=== PATIENT | male | born 1960 | race Caucasian/White ===

== ENCOUNTER 2017-01-25 13:16 | Inpatient (IN) ==
[2017-01-25] MEDS ORDERED: SOLU-MEDROL IV ONE (13:40)
[2017-01-25] MEDS ORDERED: PULMICORT INH ONE (13:40)
[2017-01-25] MEDS ORDERED: ALBUTEROL NEB INH ONE (13:40)
[2017-01-25] MEDS ORDERED: DUONEB (A & A) INH ONE ×2 (13:40→14:58)
--- NOTE | 2017-01-25 14:15 | Diag Imaging Result Doc PS360 ---
EXAM: CHEST-1 VIEW HISTORY: SOB COMMENT: The inspiration is not as optimal as on 01/10/2017. The patient is rotated slightly to the right. There is increased opacity in the left base which may be due to atelectasis. There is also some suggestion of atelectasis or pneumonia in the right upper lobe. IMPRESSION: Poor inspiration. Questionable atelectasis as described. Electronically signed by J Carlos Dawn 01/25/2017 2:13 PM
[2017-01-25 14:33] LABS: ALBUMIN 2.9 g/dL (3.5-5.0); CALCIUM 7.2 mg/dL (8.8-10.2); POTASSIUM 3.3 mmol/L (3.5-5.1); TOTAL BILIRUBIN 0.4 mg/dL (0.20-1.00); TOTAL PROTEIN 5.6 g/dL (6.3-8.3)
[2017-01-25 14:34] LABS: BASO% 1.8 % (0.0-0.8); EOS# 0.04 X1000 (0.0-0.7); EOS% 1.4 % (0.0-10.0); HEMATOCRIT 34.7 % (42.0-52.0); HEMOGLOBIN 10.7 g/dL (14.0-18.0); IMM GRAN# 0.02 X1000 (0.0-0.04); IMM GRAN% 0.7 % (0.0-0.5); LYMPH# 0.65 X1000 (1.2-3.4); LYMPH% 23.3 % (20.5-51.1); MANUAL DIFF NEEDED? NO; MCHC 30.8 g/dL (33-37); MCV 107.1 FL (81-99); MONO% 14.3 % (1.7-9.3); MPV 11.6 FL (7.4-10.4); NEUT% 58.5 % (42.2-75.2); PLT 75 X1000 (130-400); RBC 3.24 XMIL (4.7-6.1)
[2017-01-25 14:41] LABS: ALLEN TEST YES; BE 2.6 mmoll (-3.0-3.0); BLOOD TYPE ARTERIAL; DRAW SITE L RADIAL; LACTATE < 0.30 mmoll (0.44-2.22); METHB 0.7 % (0.0-1.5); O2(CT) 13.3 mL/dL (15.0-23.0); PO2(98.6) 79 mmHg (60-100); SAMPLE BLOOD; SAO2 96.1 % (95.0-100.0); THB 10.4 g/dL (11.5-17.4)
[2017-01-25 14:44] LABS: MODALITY CANNULA
[2017-01-25 14:45] LABS: pH(98.6) 7.07 (7.35-7.45)
[2017-01-25 14:46] LABS: PCO2(98.6) 122 mmHg (35-45)
[2017-01-25] MEDS ORDERED: TYLENOL PO PRN (14:58)
[2017-01-25] MEDS ORDERED: NS 1,000 ML IV ONE (14:58)
[2017-01-25] MEDS ORDERED: ZOFRAN IV PRN (14:58)
--- NOTE | 2017-01-25 14:58 | PROVIDER DOCUMENTATION ---
This chart was entered by Maria Antonia Orantes Scribe, acting as scribe for Efrain Ashraf MD. HPI-Respiratory General - General Chief Complaint: Shortness of Breath Stated Complaint: TROUBLE BREATHING Time Seen by Provider: 01/25/17 13:30 Source: patient, family Allergies/Adverse Reactions: Patient Allergies Allergy/AdvReac Type Severity Reaction Status Date / Time No Known Allergies Allergy Verified 01/25/17 14:51 Home Medications: Home Medication List Medication Instructions Recorded Confirmed Last Taken Type Ipratropium/Albuterol Sulfate 2 puff IH BID 05/18/12 01/09/17 09/07/16 History [Combivent Inhaler] Oxycodone HCl/Acetaminophen 10 mg PO TID 09/10/14 01/09/17 09/07/16 History [Percocet 10-325 mg Tablet] Buspirone HCl 5 mg PO HS 06/19/15 01/09/17 09/07/16 History Clonazepam [Klonopin] 2 mg PO HS 06/19/15 01/09/17 09/07/16 History Lisinopril 20 mg PO DAILY 06/19/15 01/09/17 09/07/16 History Albuterol Sulfate [Proair Hfa] 8.5 gm IH BID 04/28/16 01/09/17 09/07/16 History Calcium Carbonate [Tums Extra 750 mg PO DAILY 04/28/16 01/09/17 09/07/16 History Strength] Ipratropium [place] [Atrovent] 2 puff NS BID 04/28/16 01/09/17 09/07/16 History Metoclopramide [Reglan] 10 mg PO DAILY 04/28/16 01/09/17 09/07/16 History Oxycodone HCl [Oxycontin] 30 mg PO BID 04/28/16 01/09/17 09/07/16 History Insulin Glargine [Lantus] 20 unit SUBQ DAILY #0 06/11/16 01/09/17 09/07/16 Rx Nicotine Patch [Nicoderm Patch] 21 mg TD DAILY #7 patch.[email or web address] 09/08/16 01/09/17 Unknown Rx - History of Present Illness-Resp Nature of Presenting Problem: Pt is 56 y/o M presents to the ED with SOB. Pt's family member states Pt has been SOB for one week. Pt's family member states he is on dialysis MWF. Pt's family member states he went to dialysis today and then she took Pt by PCP's office and Dr. Paul stated go to the ED. Pt denies F. Pt denies N/V/D. Pt denies any cough and cold. Quality of Pain: reports: tightness Severity in ED: reports: moderate Onset/Duration: reports: last week Timing: reports: still present, intermittent Exposure: reports: unknown cause Cough Quality/Degree: reports: no cough Episode Frequency: occasional episodes Current Respiratory Medication Therapy: Initiated see nurses note Modifying Factors: improves with: nothing Associated Symptoms: reports: shortness of breath, wheezing. denies: chest pain /soreness, cough, dizziness, earache, facial pain, fever/chills, flu-like symptoms, headache, heart racing, hurts to breathe, hyperventilating, lightheadedness, muscle/bodyaches, nasal congestion, nasal drainage, sinus pain , short of breath, sore throat, sweaty Similar Symptoms Previously?: Yes Recently seen or treated by another doctor?: Yes (Dr. Paul ) Review of Systems - Adult - REVIEW OF SYSTEMS - ADULT Constitutional: reports: no symptoms reported Eyes: reports: no symptoms reported Ears, Nose, Mouth & Throat: reports: no symptoms reported Cardiovascular: reports: no symptoms reported Respiratory: reports: shortness of breath, wheezing. denies: cough Gastrointestinal: reports: no symptoms reported Genitourinary: reports: no symptoms reported Musculoskeletal: reports: muscle weakness. denies: bone pain, joint pain, neck pain Integumentary: reports: no symptoms reported Neurological: reports: no symptoms reported Psychiatric: reports: no symptoms reported Endocrine: reports: no symptoms reported Hematologic/Lymphatic: reports: no symptoms reported Allergic/Immunologic: reports: no symptoms reported All Other Systems: Reviewed and Negative Past History - Adult - PAST MEDICAL HISTORY-ADULT Review of Records: reports: Nursing Assessment Review, Medications Reviewed, Social history reviewed & non-contributory. Major Childhood Illnesses: reports: denies history Cardiovascular: reports: HTN Respiratory: reports: COPD Gastrointestinal: reports: pancreatitis Obstetrical/Gynecological: reports: denies history Genitourinary: reports: dialysis (MWF), ESRD, kidney disease Musculoskeletal: reports: denies history Neurological: reports: denies history Endocrine/Immune: reports: Diabetes Other Conditions: reports: denies history - PRIOR SURGERIES/PROCEDURES Surgical/Procedure History: reports: cholecystectomy, indwelling device (port cath, av fisutla), tonsillectomy, bowel surgery (colon resection), other ( pancreatic ) - IMMUNIZATION STATUS Childhood Immunizations: See Nurse Assessment Flu Vaccine: See Nurse Assessment - FAMILY HISTORY Family History: reviewed, not pertinent - SOCIAL HISTORY Smoking: cigarettes, greater than 1 pack/day Provider spent 3-5 mins advising pt. on dangers of tobacco.: Discussed manners to quit use, and f/u contacts for add'l counseling. Substance Use: denies Living Situation: family Physical Exam-General - PHYSICAL EXAM-ADULT Initial Vital Signs Reviewed: Yes - CONSTITUTIONAL General Appearance: appears well, alert, mild distress, slow to respond - EYES Eyes: PERRL/EOMI, anisocoria - HEAD, EARS, NOSE, MOUTH & THROAT HENMT: normocephalic/atraumatic, normal ENT inspection, other (dry mucous membranes) - NECK Neck: non-tender, full range of motion, supple, normal inspection - RESPIRATORY Respiratory: chest non-tender, respiratory distress (mild), decreased breath sounds, accessory muscle use, wheezing, increased rate - CARDIOVASCULAR Cardiovascular: normal peripheral pulses, regular rate, rhythm - GASTROINTESTINAL (ABDOMEN) Abdominal Exam: normal bowel sounds, non tender, soft - LYMPHATIC Lymphatic: no adenopathy - MUSCULOSKELETAL Back Exam: normal inspection, no CVA tenderness, no vertebral tenderness Extremity: normal range of motion, non-tender - SKIN Integumentary: normal color, normal turgor, warm/dry - NEUROLOGIC Neurologic: grossly normal - PSYCHIATRIC Psych/Mental Status: normal mood/affect Progress - PLAN OF CARE/RESULTS Progress/Plan/Lab Results: Vital Signs - 8 hr 01/25/17 13:23 01/25/17 14:03 01/25/17 14:20 Pulse Rate 66 65 65 Respiratory Rate 22 26 H 26 H Blood Pressure 86/42 91/53 O2 Sat by Pulse Oximetry 82 L 01/25/17 14:36 Pulse Rate 58 L Respiratory Rate 22 Blood Pressure 98/62 O2 Sat by Pulse Oximetry Laboratory Results - last 24 hr 01/25/17 01/25/17 01/25/17 13:54 13:54 14:30 WBC 2.79 L RBC 3.24 L Hgb 10.7 L Hct 34.7 L MCV 107.1 H MCH 33.0 H MCHC 30.8 L RDW Std Deviation 14.5 Plt Count 75 L MPV 11.6 H Immature Gran % (Auto) 0.7 H Neut % (Auto) 58.5 Lymph % (Auto) 23.3 Letcher % (Auto) 14.3 H Eos % (Auto) 1.4 Baso % (Auto) 1.8 H Immature Gran # (Auto) 0.02 Neut # (Auto) 1.63 Lymph # (Auto) 0.65 L Letcher # (Auto) 0.40 Eos # (Auto) 0.04 Baso # (Auto) 0.05 Specimen Type ARTERIAL Sample Site L RADIAL pH 7.07 L* pCO2 122 H* pO2 79 HCO3 26.8 H Base Excess 2.6 Oxyhemoglobin 90.1 L ABG O2 Sat (Calculated) 13.3 L ABG O2 Saturation 96.1 ABG Carboxyhemoglobin 5.50 H* ABG Methemoglobin 0.7 Jhony Test YES A-a O2 Difference 25.0 Total Hemoglobin 10.4 L Lactate < 0.30 L Liter Flow 4.0 Blood Gas Modality CANNULA FiO2 % 36.0 Sodium 136 Potassium 3.3 L Chloride 97 L Carbon Dioxide 33 Anion Gap 6 BUN 10 Creatinine 2.4 H Estimated GFR/1.73 m2 28 BUN/Creatinine Ratio 4 Glucose 179 H Calculated Osmolality 275 Calcium 7.2 L Total Bilirubin 0.40 AST 15 ALT 10 Alkaline Phosphatase 94 Total Protein 5.6 L Albumin 2.9 L Globulin 2.7 Albumin/Globulin Ratio 1.1 Orders Category Date Time Status CHEST-1 VIEW [RAD] Stat Exams 01/25/17 13:42 Completed ABG [RESP] Routine Lab 01/25/17 14:30 Completed CBC WITH DIFF [HEME] Stat Lab 01/25/17 13:54 Completed COMPREHENSIVE METABOLIC PANEL [CHEM] Stat Lab 01/25/17 13:54 Completed Albuterol 2.5MG/Ipratrop 0.5MG [Duoneb (A & A)] Med 01/25/17 13:40 Discontinued 3 ml INH NOW ONE Albuterol [Albuterol Neb] Med 01/25/17 13:40 Discontinued 5 mg INH NOW ONE Budesonide [Pulmicort] Med 01/25/17 13:40 Discontinued 0.5 mg INH NOW ONE Methylprednisolone Sod Succ [Solu-Medrol] Med 01/25/17 13:40 Discontinued 125 mg IV NOW ONE Aerosol Treatments Routine Oth 01/25/17 13:41 Completed Aerosol Treatments Stat Oth 01/25/17 13:41 Completed BIPAP Stat Oth 01/25/17 14:43 Active Oxygen Device Stat Oth 01/25/17 13:54 Completed EKG [EKG] Stat Ther 01/25/17 13:39 Ordered EKG [EKG] Stat Ther 01/25/17 13:42 Ordered Result Diagrams: 01/25/17 13:54 01/25/17 13:54 - EKG 1 Time of EKG reading by physician:: 13:43 EKG Read and Signed by:: Efrain Ashraf EKG Interpretation (*Must complete 3 of following elements*): Abnormal ( prolonged QT) Rate: 64 Rhythm: normal sinus rhythm Comments: right axis deviation; pulmonary disease pattern - XRAY 1 XRAY Study: Chest Impression: Abnormal XRAY Interpretation: COPD per Dr. Ashraf - CONSULTS/PCP/HOSPITALIST Notification #1 *Consult/PCP/Hospitalist*: Dr. Paul Time Discussed: 14:11 Reason/Comments: Dr. Ashraf consults with Dr. Paul about Pt. Consult Disposition: Admit #2 Consult: Dr. Zhao Time Discussed: 14:44 Reason/Comments: Dr. Ashraf consulted with Dr. Zhao about Pt Consult Disposition: Will see in ED Departure - Departure Time of Disposition Decision: 13:48 DIAGNOSIS: COPD with acute exacerbation Respiratory failure Qualifiers: Chronicity: chronic Respiratory failure complication: unspecified whether with hypoxia or hypercapnia Qualified Code(s): J96.10 - Chronic respiratory failure, unspecified whether with hypoxia or hypercapnia CRF (chronic renal failure) Qualifiers: Chronic kidney disease stage: unspecified stage Qualified Code(s): N18.9 - Chronic kidney disease, unspecified Disposition: ADMITTED INPATIENT 09 Certified Medical Emergency: Emergent Condition: Fair Referrals and Follow-Ups: Trav Paul MD [Primary Care Provider] - - Critical Care Note This patient required my direct & personal management of CC.: No Total Time (mins): 35 (lab interprettation, talking to admit MD and portfolio consultant) Critical Care Statement: This patient required my direct personal management to treat or rule out processes, the absence of which, could potentiallly result in sudden, clinically significant life or limb threatening deterioration. This chart was documented by the indicated scribe, (Maria Antonia Orantes Scribe) and accurately reflects the services I performed and decisions made by me, Efrain Ashraf MD, as attested by the provider's signature.
[2017-01-25] MEDS ORDERED: HUMULIN R SUBQ SCH (15:00)
[2017-01-25] MEDS ORDERED: ALBUMIN 25% IV ONE (17:57)
[2017-01-25] MEDS ORDERED: SALINE LOCK IV FLUID XX ONE (18:07)
[2017-01-25] MEDS: NICODERM PATCH TD SCH (18:13)
[2017-01-25 19:32] LABS: ALLEN TEST YES; BE 1.2 mmoll (-3.0-3.0); BLOOD TYPE ARTERIAL; DRAW SITE L RADIAL; METHB 0.6 % (0.0-1.5); O2(CT) 13.2 mL/dL (15.0-23.0); PO2(98.6) 81 mmHg (60-100); SAMPLE BLOOD; SAO2 96.9 % (95.0-100.0); pH(98.6) 7.21 (7.35-7.45)
[2017-01-25 19:33] LABS: BASO% 1.1 % (0.0-0.8); EOS# 0.01 X1000 (0.0-0.7); EOS% 0.6 % (0.0-10.0); HEMATOCRIT 31.9 % (42.0-52.0); HEMOGLOBIN 9.8 g/dL (14.0-18.0); IMM GRAN# 0.02 X1000 (0.0-0.04); IMM GRAN% 1.1 % (0.0-0.5); LYMPH# 0.12 X1000 (1.2-3.4); LYMPH% 6.9 % (20.5-51.1); MANUAL DIFF NEEDED? NO; MCH 32.7 PG (27-31); MCHC 30.7 g/dL (33-37); MCV 106.3 FL (81-99); MONO# 0.04 X1000 (0.11-0.59); MONO% 2.3 % (1.7-9.3); MPV 11.3 FL (7.4-10.4); PLT 79 X1000 (130-400)
[2017-01-25 19:33] LABS: MODALITY BI PAP; PCO2(98.6) 76 mmHg (35-45)
[2017-01-25 19:53] LABS: ALBUMIN 2.8 g/dL (3.5-5.0); POTASSIUM 3.4 mmol/L (3.5-5.1); TOTAL BILIRUBIN 0.35 mg/dL (0.20-1.00)
[2017-01-25] MEDS ORDERED: CALCIUM GLUCONATE 2 GM in NS 100 ML IV ONE (20:14)
[2017-01-25] MEDS: SOLU-MEDROL IV SCH (20:15)
[2017-01-25] MEDS: KLONOPIN PO SCH (20:56)
[2017-01-25] MEDS: OXYCONTIN PO SCH (20:57)
[2017-01-25] MEDS: HUMULIN R SUBQ SCH (21:37)
[2017-01-25] MEDS: DOPAMINE 400 MG/D5W 400 MG/500 ML IV.SOLN IV SCH (22:42)
[2017-01-26] MEDS: SOLU-MEDROL IV SCH ×4 (03:00→19:50)
--- NOTE | 2017-01-26 04:24 | CONSULTATION ---
DATE OF CONSULTATION: 01/25/2017 REASON FOR ADMISSION: Increased work of breathing. REASON FOR CONSULT: Assistance with medical management and end-stage renal disease. CONSULTING PHYSICIAN: Dr. Ashraf. HISTORY OF PRESENT ILLNESS: Mr. Gan is a 56-year-old white male who is known to our outpatient services for hemodialysis on Monday, Monday, Monday. Patient states that he has had increased work of breathing for approximately 1 week. He had just been discharged from the hospital the week of January for obtundation and increased work of breathing with questionable pneumonia at that time. Patient stated that he had finished his dialysis treatment today. Due to not feeling any better with increased work of breathing and weakness, he presented to his primary care physician's, Dr. Paul, office. Dr. Paul had advised him to go to [facility]'s emergency department. At this time he is currently being worked up. He is to be admitted. He is currently on O2 at 5 L nasal cannula. He has refused ABGs. He is receiving a breathing treatment at this time. Vital signs appear stable. Patient currently denies any nausea. No vomiting. He states that he has not had any fever or chills. He does continue with increased work of breathing, positive weakness, positive productive cough. States that he does have some pleuritic pain and feels a knot, like he is swollen in his back. He does have severe dyspnea on exertion most of the time. PAST MEDICAL HISTORY: End-stage renal disease with hemodialysis Monday, Monday, and Monday, type 2 diabetes mellitus type 2, COPD, chronic pain syndrome with heavy narcotic therapy. He has nicotine dependence, anemia secondary to chronic disease, osteodystrophy secondary to chronic disease, and uses home O2, with questionable COPD. PREVIOUS SURGICAL HISTORY: He has multiple grafts, tunnel dialysis catheter in the left chest in the past, previous cholecystectomy, previous colon surgeries. He has an AV graft to the right forearm. He does have chronic swelling. SOCIAL HISTORY: He lives alone. His mother is attentive to his care. He continues to smoke 2 packs of cigarettes a day. He denies any alcohol abuse. He is a heavy narcotic user due to his chronic pain. He states that he is no longer able to go to the pain clinic regularly and is in need of a physician to help control his pain. FAMILY HISTORY: Noncontributory. CURRENT ALLERGIES: No known drug allergies. MEDICATIONS: Home medications are currently being reviewed. REVIEW OF SYSTEMS: Times 10 with pertinent positives listed above in the HPI. VITAL SIGNS: Patient's most recent vital signs, last temperature has not been taking. He was afebrile at the clinic according to the patient. His vital signs show a blood pressure 98/62, heart rate 62, respirations 22. He is on 5 L nasal cannula. He is saturating at 91%. LABS: His current labs: Sodium 136, potassium 3.3, chloride 97, CO2 33, BUN 10 , creatinine 2.4, glucose 179, calcium is 7.2, albumin is 2.9. White count 2.79, hemoglobin 10.7 , hematocrit 34.7, with a platelet count of 75,000. ABGs, pH 7.07, CO2 122, PO2 79. He has a bicarbonate of 26.8. Lactate less than 0.3. Chest x-ray shows poor inspiratory effort. Suggestions of atelectasis versus pneumonia in the right upper lobe. PHYSICAL EXAMINATION: General: This is a 56-year-old white male. He is currently resting in a stretcher. Head of the bed is elevated. He is in moderate distress. He remains on O2, currently receiving albuterol treatments. Skin: Warm and dry. HEENT: Normocephalic, atraumatic. Conjunctivae pale. He has ANDREINA. Mucous membranes are moist. Neck: Supple. Trachea midline. He has chronic venous distention to his neck, along with elevations in his carotids with positive JVD. Cardiovascular: Regular rate and rhythm. He is without murmur or gallop. Lungs: Patient has crackles bilateral with rhonchi noted to the left lower and mid lobe. No expiratory wheeze is noted. Continues on O2. Equal excursion. Abdomen: Round, soft, nontender. Positive bowel sounds. Genitourinary: Not inspected. Minimal void with dialysis assist. Extremities: No edema. No clubbing or cyanosis. He has an AV fistula to the right forearm. This is currently taped. Integumentary: Skin is warm and dry without rashes or lesions. Neurological: Patient is lethargic. He is alert and oriented to person and to place and most recent events. ASSESSMENT AND PLAN: 1. End-stage renal disease. Patient had his dialysis treatment today. He does appear to have positive JVD. He came in with 3 kg on above his dry weight which they were able to pull. We will plan for an extra treatment in the a.m. to assist with any possible fluid overload. 2. Electrolytes. These remain stable. 3. Acid-base balance. Patient appears to be in metabolic alkalosis with respiratory acidosis. He remains on O2, equal excursion. 4. Anemia. This remains stable. No need for intervention. 5. Increased respiratory status with poor air exchange with poor inspiratory effort. Patient is to be admitted for further evaluation. He remains in the emergency department at this time for further workup and placement to the floor. I would like to thank you for allowing us to follow with this patient. Seen, data reviewed, discussed with Regina Bae on 01/25/17. I agree with the above assessment and plan of care. rg Dictated by LEYDI Crum for Liu Sanchez MD cc: LEYDI Crum MD [facility]
[2017-01-26 04:27] LABS: ALLEN TEST YES; BE 1.3 mmoll (-3.0-3.0); BLOOD TYPE ARTERIAL; DRAW SITE R RADIAL; METHB 0.7 % (0.0-1.5); O2(CT) 15.2 mL/dL (15.0-23.0); PO2(98.6) 100 mmHg (60-100); SAMPLE BLOOD; SAO2 98.2 % (95.0-100.0); THB 11.3 g/dL (11.5-17.4)
[2017-01-26 04:29] LABS: MODALITY BI PAP; PCO2(98.6) 82 mmHg (35-45); pH(98.6) 7.19 (7.35-7.45)
--- NOTE | 2017-01-26 05:22 | EKG Report ---
Test Performed on : 01/25/2017 1:43:14 PM Test Reason : SOB Blood Pressure : / mmHG Vent. Rate : 064 BPM Atrial Rate : 064 BPM P-R Int : 166 ms QRS Dur : 106 ms QT Int : 474 ms P-R-T Axes : 095 110 054 degrees QTc Int : 489 ms Suspect arm lead reversal, interpretation assumes no reversal Normal sinus rhythm. Right axis deviation Pulmonary disease pattern Prolonged QT Abnormal ECG When compared with ECG of 25-JAN-2017 13:42, (Unconfirmed) aberrant conduction. is no longer present Non-specific change in ST segment in Anterior leads T wave inversion less evident in Anterior leads Unconfirmed Result
[2017-01-26 06:33] LABS: MANUAL DIFF NEEDED? NO
[2017-01-26] MEDS: HUMULIN R SUBQ SCH ×4 (06:41→21:25)
[2017-01-26 06:45] LABS: HEMATOCRIT 34.7 % (42.0-52.0); HEMOGLOBIN 10.9 g/dL (14.0-18.0); LYMPH% 12.7 % (20.5-51.1); MCH 32.5 PG (27-31); MCHC 31.4 g/dL (33-37); MCV 103.6 FL (81-99); MONO% 2.4 % (1.7-9.3); MPV 11.6 FL (7.4-10.4); NEUT% 84.9 % (42.2-75.2); PLT 102 X1000 (130-400); RBC 3.35 XMIL (4.7-6.1)
[2017-01-26 06:46] LABS: LYMPH# 0.16 X1000 (1.2-3.4); MONO# 0.03 X1000 (0.11-0.59)
[2017-01-26 07:00] LABS: ALBUMIN 3.2 g/dL (3.5-5.0); CALCIUM 7.5 mg/dL (8.8-10.2); MAGNESIUM 1.8 mg/dL (1.5-2.7); POTASSIUM 3.6 mmol/L (3.5-5.1); TOTAL BILIRUBIN 0.47 mg/dL (0.20-1.00); TOTAL PROTEIN 5.6 g/dL (6.3-8.3)
[2017-01-26] MEDS ORDERED: TIGHT: 0.2 ML/HR MISC PRN (07:13)
[2017-01-26] MEDS ORDERED: NS 2,000 ML MISC PRN (07:13)
[2017-01-26] MEDS ORDERED: HEPARIN IV PRN (07:13)
[2017-01-26] MEDS ORDERED: LASIX IV ONE (07:27)
[2017-01-26] MEDS ORDERED: CALCIUM GLUCONATE 2 GM in NS 100 ML IV ONE (07:28)
--- NOTE | 2017-01-26 07:43 | Diag Imaging Result Doc PS360 ---
EXAM: CHEST-1 VIEW HISTORY: Pneumonia COMPARISON: 01/25/2017 FINDINGS: There are increased perihilar infiltrates or edema. There is no substantial pleural effusion or pneumothorax identified. Heart size is within normal limits. IMPRESSION: Increased perihilar infiltrates or edema. Electronically signed by Daniel Royal 01/26/2017 7:41 AM
--- NOTE | 2017-01-26 07:51 | PROGRESS NOTE ---
DATE: 01/26/2017 PRIMARY CARE PHYSICIAN: Dr. Trav Paul. CRITICAL CARE: Dr. Fink. STREET COMMISSIONER: Dr. Lui Sanchez. SUBJECTIVE: Overnight, the patient required continued use of the BiPAP, noting labs that showed persistent respiratory acidosis and hypercarbia. Dopamine drip was instituted due to patient's low heart rate and MAP less than 60. The patient tolerated it well. This morning, he is a little more alert but primarily unchanged since the admission yesterday. PHYSICAL EXAMINATION: Vital Signs: T 97.4 degrees, pulse 68, respirations 19, blood pressure 120/63, MAP of 75-91, O2 is 100% on BiPAP currently with 50% O2 flow. General: No complaint of pain. Is and Os: Show no measured output. HEENT Examination: Patient has BiPAP in place. Globally jaundice with poor overall function and ability to maintain arousal state. Lungs: Decreased breath sounds anteriorly with rhonchi at the bilateral bases but improved over prior exam. CV: Bradycardic with occasional PVCs noted. No murmurs, gallops, or rubs. Abdomen: Protuberant, slightly distended. Extremities: Show right upper extremity and neck with fullness and edema, consistent with chronic deep vein thrombosis in the right upper extremity. Secondarily, the patient does have a worsening sacral edema and only complains of pain whenever it is manipulated but otherwise is quite stable. As noted above, urine output is unmeasured to 0. LABS: Today's labs show a WBC still low at 1.26 with a hemoglobin and hematocrit of 10 and 34 respectively, platelets of 102,000 neutrophils down from 88 to 84, lymphocytes still low at 12.7. ABG shows a pH of 7.19 with a pCO2 of 82, bicarb of 25. Lactate is still within normal limits. Chemistry normalized, 136, 3.6, anion gap of 10, creatinine slightly up from 2.7 to 3.1. Glucose ranging within normal limits. Calcium low at 7.5, status post 1 dose of calcium gluconate. Phosphorus high at 4.6. ProBNP greater than 3500. Albumin with a slight improvement, measured pretty close to the receipt of the albumin. Repeat chest x-ray performed with an official read pending. Evaluation per Dr. Sanchez in the ER suggested very similar situation. As we have discussed , no acute changes made per that team. ASSESSMENT AND PLAN: A 56-year-old, male with: 1. Respiratory failure with hypercarbia. 2. End-stage renal disease. 3. Volume overload. 4. Respiratory acidosis with resolving metabolic alkalosis. 5. Leukopenia. 6. Thrombocytopenia. PLAN: Continue current measures. Receive input via critical care and nephrology. The patient will have to be appropriately managed from a respiratory point of view before we have any further evaluations of the patient's chronic status. We will continue the dopamine drip at this time and monitor with the daily labs is as noted. The patient is at a low functioning status. We will await input via nephrology regarding the need for diuresis. Maintain pain management as appropriate. Measures are being taken to discuss with the family the severity of the condition. We will be closely following in case there are any changes or concerns. We will titrate the drip as possible if there is any overt response or blood pressure is increased. The patient be followed daily in the ICU without transfer today. cc: Trav Paul MD
--- NOTE | 2017-01-26 08:25 | HISTORY AND PHYSICAL ---
PRIMARY CARE PHYSICIAN: Dr. Trav Paul. MORTGAGE PROCESSING MANAGER: Dr. Liu Sanchez. CHIEF COMPLAINT: Acute shortness of breath. HISTORY OF PRESENT ILLNESS: Lamonte is a 57-year-old male with end-stage renal disease on Monday, Monday, Monday dialysis presented to the clinic with acute worsening shortness of breath. Patient was brought by his mother. States that his shortness of breath has continued over the past week especially worse status post dialysis. At that time, it was advised patient present to the emergency room for stabilization and further workup of this complex condition. REVIEW OF SYSTEMS: Twelve point review of systems pertinent for items mentioned in HPI. Patient does state he has chest tightness, weakness and nonproductive cough. Had dizziness and body aches but denies any overt bone pain, joint pain, muscular weakness. PAST MEDICAL HISTORY: Includes end-stage renal disease, hypertension, COPD, chronic upper extremity clot, anasarca, diabetes mellitus type 2 uncontrolled on insulin, chronic pancreatitis. PAST SURGICAL HISTORY: Patient has a remote cholecystectomy, and does have a port catheter and fistula present, history of tonsillectomy, bowel surgery, colonic resection. FAMILY HISTORY: Reviewed and not pertinent to the case today. SOCIAL HISTORY: Patient is a greater than 1 pack a day smoking history. Multiple occasions we have discussed smoking and the patient has no desire to quit at this time due to low status and very few desires in life at patient's low functioning state. PHYSICAL EXAM: Temperature the patient is afebrile, pulse 65, respiratory rate 26, blood pressure 98/62, O2 saturation 82%. GENERAL: Patient is an overtly jaundiced male, [id number] distress with slow reflexes, psychomotor retardation. EYES: Pupils are equal, round, reactive to light. There is some jaundice noted. HEENT: Is normocephalic, atraumatic. Normal ENT. Dry mucous membranes. NECK: Nontender, full range of motion. Supple. Normal inspection. RESPIRATORY: The patient is on the BiPAP currently, in mild respiratory distress but is not somnolent. Decreased breath sounds bilateral bases with overt accessory muscle use. Mild rhonchi noted. CV: Regular rate and rhythm. The patient is having occasional PVCs. GI: The patient's abdomen is scaphoid, nontender and nondistended. MUSCULOSKELETAL: Evaluation the back shows some 2+ edema just above the spine. SKIN: Friable with poor turgor and is warm. NEUROLOGIC: Cranial nerves 2-12 are grossly intact. PSYCH: Patient is depressed mood, downcast affect and as mentioned above psychomotor retardation. LABS: The patient's initial lab workup shows a WBC of 2.7, with an hemoglobin and hematocrit of 10 and 34 respectively, MCV of 107.1, platelets of 75,000, neutrophils of 58. Blood gas initially shows a pH of 7.07 with a pCO2 of 122, bicarb of 26.8, total hemoglobin 10.4, lactate less than 0.30. Chemistry shows sodium 136, potassium 3.3, BUN of 10, creatinine 2.4, calcium 7.2 and total protein 5.6, and albumin low at 2.9. Chest x-ray performed 01/25/2017 at 1342 shows poor inspiration and atelectasis, increased opacity left base due to atelectasis and mild suggestion of pneumonia right upper lobe. ASSESSMENT AND PLAN: 1. Hypercarbic respiratory failure. 2. End-stage renal disease. 3. Questionable right upper lobe pneumonia. 4. Anasarca. 5. Hypotension. 6. Hypoalbuminemia. 7. Thrombocytopenia. 8. Hypokalemia. The patient will be admitted to the ICU to be followed by both Critical Care and Nephrology. Will do blood cultures. Start BiPAP and follow with the response to therapy. Rechecking labs tonight approximately 10. We will return some respiratory function prior to further evaluation of underlying causes. Blood cultures are to be drawn and we will continue to follow WBC. Nephrology to assist regarding the reinstitution of the electrolytes which patient is chronically low. No need for pressors at this time as the patient has normal blood pressure status post dialysis. We will provide 1 dose of albumin and Clinimix due to lack of the nutritional function and follow status post. Patient is at tenuous state and long discussion with the family member notes increased risk of and dying. The patient's family members are fully understanding of the severity of the situation. We will follow with any remediations status post even to regard of Hospice versus the withholding of treatment if patient is responding. cc: Trav Paul MD
[2017-01-26] MEDS ORDERED: HEPARIN ONE (08:31)
[2017-01-26] MEDS ORDERED: NS 2,000 ML ONE (08:31)
[2017-01-26] MEDS: NICODERM PATCH TD SCH (08:32)
[2017-01-26] MEDS: OXYCONTIN PO SCH (08:33)
--- NOTE | 2017-01-26 11:10 | PROGRESS NOTE ---
DATE: 01/26/2017 SUBJECTIVE: Mr. Gan is sitting up in bed. He has just been taken off his BiPAP. He is now on 50% Ventimask. His sats are 92-94%. He states that he feels rough. He denies chest pain. No increased work of breathing, though he continues tachypneic. OBJECTIVE: Vital Signs: His most recent vital signs are temperature 97.4 degrees, blood pressure 128/63, heart rate 68, respirations 20. He continues on a 50% Ventimask. Last recorded saturation 92-95%. He has had 475 in, he has had 0 out. General: This is a 56-year-old white male. He appears chronically ill. He is in no acute distress. Skin: Warm and dry. HEENT: Normocephalic, atraumatic. Conjunctiva is pale. He has ANDREINA. Mucous membranes are dry. Neck: Supple. Trachea midline. He has evidence of jugular venous distention, thought head of the bed is elevated at 90 degrees. Cardiovascular: He is regular rate and rhythm on the monitor. Soft murmur. No gallop appreciated. Lungs: Clear to auscultation anteriorly. Equal excursion. He remains on 50% Ventimask. Abdomen: Soft, nontender. Positive bowel sounds. Genitourinary: Not inspected. Minimal void with dialysis assist. Extremities: Have no edema. No clubbing or cyanosis, with an AV fistula to the right forearm. Integumentary: Skin is warm and dry. No rashes or lesions evident, though he does appear to have some edema to his back and mid-hip, sacral area. Neurological: He is alert and oriented x3. LABS: Sodium 136, potassium 3.6, chloride 98, CO2 28. BUN 14, creatinine 3.1, glucose 98. Anion gap 10, calcium 7.5, phosphorus 4.6, albumin 3.2. White count 1.26, hemoglobin 10.9, hematocrit 34.7, with a platelet count of a 102,000. His ABGs; pH 7.19, CO2 82, pO2 100, bicarb 25.9 on BiPAP at 50%. He has a lactic acid of 0.4, B-type natriuretic peptide of greater than 35,000. ASSESSMENT AND PLAN: 1. End-stage renal disease. Patient had his routine dialysis treatment yesterday secondary to his fluid volume overload. We will plan for a full treatment today. We will attempt to challenge his dry weight and attempt 3-4 L of ultrafiltration as tolerated. The patient does have dopamine on. It has been weaned off in the last 15 minutes. This is on standby. We will attempt to see if his blood pressure stabilizes prior to starting him on dialysis. 2. Electrolytes and acid-base balance. These are stable, if not improved. 3. Anemia. This is close to target. 4. Increased respiratory status with poor inspiratory effort. The patient is to have an extra treatment today for dialysis for fluid volume overload to assist with his breathing. I would like to thank you for allowing us to follow with this patient. Seen, data reviewed, discussed with Regina Bae on 01/26/17. I agree with the above assessment and plan of care. rg Dictated by LEYDI Crum for Liu Sanchez MD cc: LEYDI Crum MD Micah A. Howard, MD MTDD
[2017-01-26] MEDS: DOPAMINE 400 MG/D5W 400 MG/500 ML IV.SOLN IV SCH (16:03)
--- NOTE | 2017-01-26 18:02 | CONSULTATION ---
DATE OF CONSULTATION: 01/26/2017 REQUESTING PHYSICIAN: Dr. Trav Paul. REASON FOR CONSULTATION: Respiratory failure. HISTORY OF PRESENT ILLNESS: Mr. Gan is a 56-year-old, white male, with end-stage renal disease on hemodialysis, severe COPD with chronic hypoxemic respiratory failure, ongoing tobacco use, with recurrent admissions to the hospital. The patient was admitted to the hospital in early January with acute ventilatory failure and altered mental status. He was discharged on the following day. He presented to his primary care physician yesterday with increasing shortness of breath. Chest x-ray revealed poor inspiration, possible atelectasis at the left base. Arterial blood gas revealed a pH of 7.02, pCO2 of 122 and a carboxyhemoglobin of 5.5. He was initiated on BiPAP with some improvement. He underwent dialysis today. He is now awake and alert and denies dyspnea at rest. His blood pressure is marginal, and he is currently refusing additional IV placement. PAST MEDICAL HISTORY: 1. Severe COPD with ongoing significant tobacco use. He has been retaining CO2 since June 2015. 2. End-stage renal disease, on hemodialysis. 3. Chronic pain syndrome on OxyContin. 4. History of recurrent pancreatitis with dilated pancreatic duct. 5. History of medical noncompliance. SOCIAL HISTORY: No alcohol use listed. Ongoing tobacco use. He has an attentive mother. FAMILY HISTORY: Multiple family members are suffering from the consequences of tobacco use. REVIEW OF SYSTEMS: Notable for chronic pain, dyspnea on exertion. PHYSICAL EXAMINATION: General: Reveals a chronically ill-appearing male, who appears much older than his stated age of 56. Blood pressure 86/38, heart rate 64, respiration rate 19, oxygen saturation 97% on 4 L per nasal cannula. His BMI is low at 16.9. HEENT: Pupils are equal and reactive. Oropharynx is clear. Neck: Supple. Chest: Reveals shallow breath sounds bilaterally without significant wheezing. Cardiac: Distant heart sounds. Normal S1, normal S2. Abdomen: Scaphoid and soft. Extremities: Without edema. The patient does have a thrill in his right arm. LABORATORIES: White blood count 1.26. He has had periodic leukopenia. Hemoglobin 10.9, platelet count 102,000. Arterial blood gas this morning, pH 7.19, pCO2 of 82, PO2 of 100 on BiPAP. Chemistry: Sodium 136, potassium 3.6, chloride 98, bicarbonate 28, BUN 14, creatinine 3.1. ProBNP is elevated at greater than 35,000. IMPRESSION: A 56-year-old with end-stage renal disease, end-stage COPD, who presents with acute hypoxemic and hypercapnic respiratory failure. Chest x-ray is difficult to interpret due to poor inspiration. His proBNP is markedly elevated and likely related to significant pulmonary hypertension. Clinically he has improved following dialysis but his blood pressure is marginal. Earlier today, he was lethargic which may be related to his pCO2 but might be related to his chronic pain requirements. RECOMMENDATIONS: 1. Cycle BiPAP for acute hypoxemic and hypercapnic respiratory failure. 2. Maintain lowest dry weight possible. 3. Attempt to decrease his OxyContin from 30 twice a day to 20 mg twice a day in the event he is having narcotic induced hypercapnia. 4. Continue bronchodilators as you are doing. 5. Follow up chest x-ray and arterial blood gas tomorrow. 6. Long-term, end of life discussions should be ongoing. cc: MD Trav Chin MD
[2017-01-26] MEDS: DUONEB (A & A) INH PRN ×2 (19:35→23:20)
[2017-01-26] MEDS ORDERED: OXYCONTIN PO SCH (21:00)
[2017-01-26] MEDS: KLONOPIN PO SCH (21:15)
[2017-01-27] MEDS: DUONEB (A & A) INH PRN (03:00)
[2017-01-27] MEDS: SOLU-MEDROL IV SCH ×4 (03:16→20:10)
[2017-01-27] MEDS: NON-FORMULARY MED PO SCH ×4 (04:20→18:03)
[2017-01-27 04:34] LABS: ALLEN TEST YES; BE 4.5 mmoll (-3.0-3.0); BLOOD TYPE ARTERIAL; DRAW SITE R RADIAL; METHB 0.7 % (0.0-1.5); O2(CT) 12.3 mL/dL (15.0-23.0); PO2(98.6) 116 mmHg (60-100); SAMPLE BLOOD; SAO2 97.5 % (95.0-100.0); THB 8.9 g/dL (11.5-17.4); pH(98.6) 7.27 (7.35-7.45)
[2017-01-27 04:35] LABS: MODALITY BI PAP; PCO2(98.6) 71 mmHg (35-45)
[2017-01-27 05:22] LABS: EOS# 0.01 X1000 (0.0-0.7); EOS% 0.7 % (0.0-10.0); HEMATOCRIT 27.8 % (42.0-52.0); HEMOGLOBIN 8.5 g/dL (14.0-18.0); LYMPH% 13.8 % (20.5-51.1); MANUAL DIFF NEEDED? NO; MCH 32.2 PG (27-31); MCHC 30.6 g/dL (33-37); MCV 105.3 FL (81-99); MONO# 0.11 X1000 (0.11-0.59); MONO% 7.6 % (1.7-9.3); MPV 11.6 FL (7.4-10.4); NEUT% 77.9 % (42.2-75.2); PLT 77 X1000 (130-400); RBC 2.64 XMIL (4.7-6.1)
[2017-01-27 05:59] LABS: ALBUMIN 2.6 g/dL (3.5-5.0); CALCIUM 7.5 mg/dL (8.8-10.2); MAGNESIUM 1.8 mg/dL (1.5-2.7); POTASSIUM 4.4 mmol/L (3.5-5.1); TOTAL BILIRUBIN 0.19 mg/dL (0.20-1.00); TOTAL PROTEIN 4.9 g/dL (6.3-8.3)
[2017-01-27] MEDS: HUMULIN R SUBQ SCH ×4 (06:13→20:14)
[2017-01-27] MEDS ORDERED: NS 2,000 ML MISC PRN (07:00)
[2017-01-27] MEDS ORDERED: HEPARIN IV PRN (07:00)
[2017-01-27] MEDS ORDERED: TIGHT: 0.2 ML/HR MISC PRN (07:00)
[2017-01-27] MEDS: ZITHROMAX 500 MG/NS 500 MG/250 ML IVPB IV SCH (07:05)
[2017-01-27] MEDS: ROCEPHIN 1 GM/NS 1 GM/50 ML IVPB IV SCH (07:05)
[2017-01-27] MEDS ORDERED: PROAMATINE PO ONE (07:17)
--- NOTE | 2017-01-27 07:18 | Diag Imaging Result Doc PS360 ---
CHEST-PORTABLE - 01/27/2017 INDICATION: abnormal exam TECHNIQUE: COMPARISON: 01/26/2017 FINDINGS: There is slight worsening in patchy bibasilar atelectasis, infiltrates and/or effusions. Heart size and pulmonary vascularity is normal. IMPRESSION: Slight worsening in bibasilar atelectasis, infiltrates and/or effusions. Electronically signed by Reginald Carmona 01/27/2017 7:16 AM
[2017-01-27] MEDS: NICODERM PATCH TD SCH (08:01)
--- NOTE | 2017-01-27 08:06 | PROGRESS NOTE ---
DATE: 01/27/2017 PRIMARY CARE PHYSICIAN: Dr. Trav Paul. The patient is being followed by Nephrology, Dr. Sanchez, and Critical Care Pulmonary, Dr. Faraz Fink. SUBJECTIVE: Overnight, patient responded by losing an IV site and refusing additional IVs after quality intervention by the staff. The patient continued to have systolic blood pressure in the 60s and heart rates in the 50s while sleeping, MAP of approximately 44. It was decided to leave IV out and institute some slight pressors orally, and patient is maintaining well. OBJECTIVE: Vital signs: Temperature 98.2, pulse 66, respirations 19, blood pressure 85/66, O2 sat 98% on BiPAP at 50%. General: Physical exam is primarily unchanged. Respiratory: The patient still has increased use of respiratory muscles for breathing, rhonchi, chronic cough and wheeze on end-expiration. CV: Bradycardic, no murmurs noted. Abdomen: Protuberant, nontender per my examination. Extremities: Lower extremities show cyanosis with mild edema. Right upper extremity shows a primary edema that is a little increased on today's examination. LABS: WBC 1.45 with a hemoglobin and hematocrit of 8 and 27.8 respectively. MCV 105. Platelets 77 with neutrophils down to 77.9. Blood gas shows an improved pH at 7.27 with a CO2 of 71 and a bicarb of 4.5. Lactate normalized at 0.9 on BiPAP at 50 and 18. Chemistry is within normal limits, creatinine 3.6 up from 3.1. Blood sugars are trending up. Calcium 7.5. Magnesium 1.8. Total bilirubin 0.19. BNP greater than 35,000. Blood cultures x2 are negative at this time. ASSESSMENT: A 54-year-old unfortunate male with: 1. Severe chronic obstructive pulmonary disease and hypoxic and hypercarbic respiratory failure currently on BiPAP. 2. End-stage renal disease on dialysis. 3. Chronic pain syndrome on long-term opioid medication. 4. Continued tobacco use greater than 1 pack daily. 5. Recurrent pancreatitis with history of noncompliance. 6. Diabetes mellitus type 2. PLAN: We will continue current measures in the ICU, request any lines if necessary, decrease patient's pain medication and increase sliding scale insulin. Continue to monitor daily with concerns for blood as necessary with intervention per Nephrology as necessary. cc: Trav Paul MD
[2017-01-27] MEDS ORDERED: HEPARIN ONE (08:14)
[2017-01-27] MEDS ORDERED: NS 2,000 ML ONE (08:14)
[2017-01-27] MEDS ORDERED: BIDEX PO SCH (09:00)
--- NOTE | 2017-01-27 14:32 | PROGRESS NOTE ---
DATE: 01/27/2017 SUBJECTIVE: He is more alert today. He still admits to shortness of breath. OBJECTIVE: Vital Signs: Blood pressure 97/51, heart rate 66, respirations 16, afebrile. Intake 1.7 L. Output 2.5 L. PHYSICAL EXAMINATION: Chronically ill man in no acute distress. On a closed face mask. Skin is warm and dry. Conjunctivae are pink. Pupils are equal. Neck veins are not appreciated. Heart is regular. Lungs have equal breath sounds. Shallow, a few wheezes. Abdomen soft, nontender. Bowel sounds are present. Extremities have 2+ edema. No clubbing or cyanosis. IMPRESSION: Respiratory failure, multifactorial. I still believe that the primary inciting event for his admission was narcotics resulting in respiratory depression overlying very marginal pulmonary status. I have counseled him about this. We will plan for extra hemofiltration today to try to lower his dry weight without causing hypotension. cc: MD Trav Benson MD
[2017-01-27] MEDS: OXYCONTIN PO PRN (18:04)
[2017-01-27] MEDS: KLONOPIN PO SCH (20:14)
[2017-01-28 04:29] LABS: ALLEN TEST YES; BE 1.7 mmoll (-3.0-3.0); BLOOD TYPE ARTERIAL; DRAW SITE R RADIAL; METHB 0.5 % (0.0-1.5); O2(CT) 12.3 mL/dL (15.0-23.0); PO2(98.6) 90 mmHg (60-100); SAMPLE BLOOD; SAO2 98.6 % (95.0-100.0); pH(98.6) 7.26 (7.35-7.45)
[2017-01-28 04:31] LABS: MODALITY CANNULA; PCO2(98.6) 66 mmHg (35-45)
[2017-01-28 04:47] LABS: BASO% 0.6 % (0.0-0.8); EOS# 0.05 X1000 (0.0-0.7); EOS% 1.5 % (0.0-10.0); HEMATOCRIT 29.6 % (42.0-52.0); HEMOGLOBIN 9.1 g/dL (14.0-18.0); LYMPH# 1.04 X1000 (1.2-3.4); LYMPH% 31.2 % (20.5-51.1); MANUAL DIFF NEEDED? NO; MCH 32.5 PG (27-31); MCHC 30.7 g/dL (33-37); MCV 105.7 FL (81-99); MONO# 0.29 X1000 (0.11-0.59); MONO% 8.7 % (1.7-9.3); MPV 10.2 FL (7.4-10.4); PLT 105 X1000 (130-400)
[2017-01-28 05:24] LABS: ALBUMIN 2.7 g/dL (3.5-5.0); CALCIUM 7.3 mg/dL (8.8-10.2); POTASSIUM 3.9 mmol/L (3.5-5.1); TOTAL BILIRUBIN 0.25 mg/dL (0.20-1.00); TOTAL PROTEIN 4.7 g/dL (6.3-8.3)
[2017-01-28] MEDS: ROCEPHIN 1 GM/NS 1 GM/50 ML IVPB IV SCH (05:52)
[2017-01-28] MEDS: ZITHROMAX 500 MG/NS 500 MG/250 ML IVPB IV SCH (05:53)
[2017-01-28] MEDS: HUMULIN R SUBQ SCH ×4 (06:08→20:25)
[2017-01-28] MEDS: SOLU-MEDROL IV SCH ×2 (07:17→19:08)
[2017-01-28] MEDS: OXYCONTIN PO PRN (07:21)
[2017-01-28] MEDS ORDERED: HEPARIN IV PRN (08:20)
[2017-01-28] MEDS ORDERED: TIGHT: 0.2 ML/HR MISC PRN (08:20)
[2017-01-28] MEDS ORDERED: NS 2,000 ML MISC PRN (08:20)
[2017-01-28] MEDS: NICODERM PATCH TD SCH (08:26)
[2017-01-28] MEDS: NON-FORMULARY MED PO SCH ×3 (08:26→16:52)
[2017-01-28] MEDS ORDERED: HEPARIN ONE (09:35)
[2017-01-28] MEDS ORDERED: NS 2,000 ML ONE (09:35)
[2017-01-28] MEDS: TUMS PO PRN ×2 (13:46→20:25)
--- NOTE | 2017-01-28 14:54 | PROGRESS NOTE ---
DATE: 01/28/2017 PRIMARY CARE: Dr. Trav Paul. SUBJECTIVE: The patient has no complaints this morning although he states that his arms hurt; therefore, he is not going to have dialysis. He states he is not stopping dialysis. He is just refusing to go today. PHYSICAL: Temperature 98, pulse 66, respiratory 23. BP 106/59. Saturation 100% on 4 L. General: The patient is awake, alert. He is currently in no respiratory distress. He is sitting in the bed watching television. HEENT: Normocephalic, atraumatic ANDREINA. Neck supple. CV: Regular rate and rhythm. Chest clear and unlabored. Abdomen soft. Extremities: Moves all extremities. Neurologic: No changes. LABORATORY DATA: WBC 3, hemoglobin and hematocrit 9 and 29. pH 7.2, pCO2 of 66, which has continued to improve. BUN 31, creatinine 4.9, glucose 134. Calcium 7.3 and albumin 2.7. ASSESSMENT: 1. Moderate protein calorie malnutrition. 2. Pulmonary edema secondary to chronic renal failure. 3. Chronic renal failure requiring hemodialysis. 4. Chronic obstructive pulmonary disease with exacerbation. His pCO2 is continuing to decrease; currently, it is at 66 and he is off BiPAP. He is on 4 L nasal cannula. 5. Hypoxic respiratory failure. 6. Chronic alcohol and drug abuse. 7. Diabetes type 2. 8. Hypertension. 9. Chronic tobacco abuse. PLAN: We will continue patient's current treatment. Will continue to attempt to encourage him to stop smoking, stop drinking, and stopped abusing opiates. We will continue to try to encourage dialysis. We will move him to the floor. Further orders as needed. cc: MD Trav Omer MD
[2017-01-28] MEDS ORDERED: EPOGEN SUBQ ONE (16:35)
--- NOTE | 2017-01-28 17:27 | PROGRESS NOTE ---
DATE: 01/28/2017 SUBJECTIVE: He states he is feeling better today. No significant shortness of breath. He does not feel he has any swelling. OBJECTIVE: Vital Signs: Blood pressure 103/57, heart rate 62, respirations 17, afebrile. Intake 1.5 L. Output 3.5 L. General: No acute distress. Skin: Warm and dry. Conjunctivae are pink. Neck: Neck veins are not appreciated. Heart: Regular. Lungs: Have equal breath sounds with few inspiratory wheezes. Abdomen: Soft, nontender. Bowel sounds are present. Extremities: Have 2+ edema. No clubbing or cyanosis. IMPRESSION: 1. End-stage kidney disease. He declined dialysis today. We will plan his next treatment on Monday. 2. Electrolytes/acid base in target. 3. Anemia below target. We will dose with erythropoietin. cc: MD Trav Benson MD
[2017-01-28] MEDS: KLONOPIN PO SCH (20:25)
[2017-01-29] MEDS: OXYCONTIN PO PRN ×2 (02:18→11:13)
[2017-01-29 04:32] LABS: ALLEN TEST YES; BE -1.9 mmoll (-3.0-3.0); BLOOD TYPE ARTERIAL; DRAW SITE L BRACHIAL; O2(CT) 10.4 mL/dL (15.0-23.0); PO2(98.6) 50 mmHg (60-100); SAMPLE BLOOD; SAO2 88.4 % (95.0-100.0); THB 8.6 g/dL (11.5-17.4)
[2017-01-29 04:34] LABS: MODALITY CANNULA; PCO2(98.6) 68 mmHg (35-45)
[2017-01-29 05:41] LABS: BASO% 0.7 % (0.0-0.8); EOS# 0.05 X1000 (0.0-0.7); EOS% 1.7 % (0.0-10.0); HEMATOCRIT 30.9 % (42.0-52.0); HEMOGLOBIN 9.5 g/dL (14.0-18.0); LYMPH# 0.78 X1000 (1.2-3.4); LYMPH% 27.2 % (20.5-51.1); MANUAL DIFF NEEDED? YES; MCH 32.3 PG (27-31); MCHC 30.7 g/dL (33-37); MCV 105.1 FL (81-99); MONO# 0.23 X1000 (0.11-0.59); MPV 10.8 FL (7.4-10.4); NEUT% 62.4 % (42.2-75.2); PLT 101 X1000 (130-400); RBC 2.94 XMIL (4.7-6.1)
[2017-01-29] MEDS: ZITHROMAX 500 MG/NS 500 MG/250 ML IVPB IV SCH (05:50)
[2017-01-29] MEDS: ROCEPHIN 1 GM/NS 1 GM/50 ML IVPB IV SCH (05:50)
[2017-01-29] MEDS: HUMULIN R SUBQ SCH ×4 (06:08→21:23)
[2017-01-29] MEDS: SOLU-MEDROL IV SCH ×2 (06:56→19:27)
[2017-01-29 07:31] LABS: EOS 6 % (1-10); LYMPHS 16 % (21-51); MONO 4 % (1-9)
[2017-01-29] MEDS: DUONEB (A & A) INH PRN ×3 (07:41→15:40)
[2017-01-29] MEDS: NON-FORMULARY MED PO SCH ×3 (08:35→18:01)
[2017-01-29] MEDS: NICODERM PATCH TD SCH (08:35)
[2017-01-29 08:39] LABS: ALLEN TEST YES; BLOOD TYPE ARTERIAL; DRAW SITE L RADIAL; METHB 0.9 % (0.0-1.5); O2(CT) 13.2 mL/dL (15.0-23.0); PO2(98.6) 101 mmHg (60-100); SAMPLE BLOOD; SAO2 97.3 % (95.0-100.0); THB 9.7 g/dL (11.5-17.4)
[2017-01-29 08:42] LABS: MODALITY BI PAP; PCO2(98.6) 73 mmHg (35-45); pH(98.6) 7.18 (7.35-7.45)
--- NOTE | 2017-01-29 10:02 | PROGRESS NOTE ---
DATE: 01/29/2017 SUBJECTIVE: Patient without any new complaints. States that he still feels bad, still is tired and fatigued. Denies any chest pain or palpitations. Denies any dysuria, frequency, or urgency. OBJECTIVE: Physical examination: Vital Signs: Reviewed. Temperature 97 degrees, pulse 87, respiratory rate 20, BP 98/55, saturation 97% on 3 L. General: Patient is awake, alert, oriented. He is currently in no respiratory distress. Speech is regular. Memory is intact. Neck: Supple. CV: Regular rate. Chest: Relatively clear. Abdomen: Soft. Extremities: Moves all extremities. Neurologic: No focal changes. ASSESSMENT: 1. Hypertension. 2. Chronic obstructive pulmonary disease. 3. Diabetes. 4. Chronic renal failure, on hemodialysis. 5. Drug and alcohol abuse. 6. Metabolic acidosis secondary to renal dysfunction. PLAN: We will continue patient in the hospital. He will have is treatments in the a.m. for his hemodialysis. We will continue to follow. Further orders as needed. cc: MD Trav Omer MD
[2017-01-29] MEDS: TUMS PO PRN ×5 (11:30→23:29)
[2017-01-29] MEDS: KLONOPIN PO SCH (21:23)
[2017-01-30] MEDS: OXYCONTIN PO PRN ×3 (00:31→23:36)
[2017-01-30] MEDS: ZITHROMAX 500 MG/NS 500 MG/250 ML IVPB IV SCH (06:12)
[2017-01-30] MEDS: ROCEPHIN 1 GM/NS 1 GM/50 ML IVPB IV SCH (06:12)
[2017-01-30] MEDS: HUMULIN R SUBQ SCH ×4 (06:12→21:56)
[2017-01-30] MEDS ORDERED: XYLOCAINE-MPF 1% INJ ONE (07:35)
[2017-01-30] MEDS ORDERED: TORADOL IM ONE (07:36)
[2017-01-30] MEDS: DUONEB (A & A) INH PRN ×4 (07:39→23:00)
[2017-01-30] MEDS ORDERED: SOLU-MEDROL IV SCH (08:00)
--- NOTE | 2017-01-30 08:05 | PROGRESS NOTE ---
DATE: 01/30/2017 PRIMARY CARE PHYSICIAN: Dr. Trav Paul. SUBJECTIVE: Overnight, the patient began declining the use of the BiPAP and stating increased need for pain medication. Patient is noted to have no ambulation since admission due to strict bedrest orders. Vital signs have been more stable. The patient is alert and oriented at this time. OBJECTIVE: Vital Signs: Temperature 97.3 degrees, pulse 68, respirations 16, blood pressure 105- 117/60-62, O2 saturation 99% on 3 L nasal cannula. Is and Os show about 1 L in with no measured output. Patient eating 100% of meals. Physical Examination: Primarily unchanged. CV: Regular rate. No murmurs, gallops, or rubs. Lungs: Show rhonchi at the bases. It clears with cough. General: The patient is cachectic with a bronze-appearing skin. HEENT: Overt scleral icterus is noted. OP is dry. Abdomen: Protuberant. Bowel sounds present. Extremities: Lower extremities with no cyanosis, clubbing, edema. Neurological: Cranial nerves 2-12 are grossly intact. The lower extremities are showing 3-4/5 strength. Laboratory Data: This a.m., labs are pending. Yesterday, patient's hemoglobin and hematocrit were 9 and 30 respectively. Blood gas 7.18, 73, 101. Blood sugars ranging from about 76-233. BNP still noted as greater than 3500. Creatinine yesterday 4.9. We will recheck today. ASSESSMENT AND PLAN: This is a 56-year-old male in the intensive care unit with: 1. Severe chronic obstructive pulmonary disease with hypoxic and hypercarbic respiratory failure. Maintaining BiPAP. 2. End-stage renal disease on hemodialysis. 3. Chronic pain syndrome. Long-term opioid medication. 4. Continued tobacco use, greater than 1 pack a day. 5. Metabolic acidosis secondary to end-stage renal disease. 6. Diabetes mellitus type 2. PLAN: Patient still requires ICU measurements but after a long discussion with both himself and the family, it is noted that the patient wishes to return to home despite the understanding of current function. ID is in evaluation regarding a central line today, have been declined with the patient's informed consent, we will discuss that with surgery but there is no need at this time. We will continue IM and p.o. medications for both pain and antibiotics. Allow patient to have hemodialysis today and then status post stepdown to CICU with p.r.n. BiPAP and re-evaluate in the morning. It is the patient's wishes to follow with palliative care on discharge as soon as possible despite patient tenuous state. The patient is aware of the risks and concerns all the way to the point of . After discussion with the family and the need for hospice, patient declines hospice secondary to the lack of hemodialysis while on hospice. We will follow daily. cc: Trav Paul MD
[2017-01-30] MEDS ORDERED: NS 2,000 ML MISC PRN (08:31)
[2017-01-30] MEDS ORDERED: HEPARIN IV PRN (08:31)
[2017-01-30] MEDS ORDERED: TIGHT: 0.2 ML/HR MISC PRN (08:31)
[2017-01-30] MEDS: LIDODERM TOP SCH (08:45)
[2017-01-30] MEDS: NICODERM PATCH TD SCH (08:45)
[2017-01-30] MEDS: ROCEPHIN IM SCH (08:45)
[2017-01-30] MEDS: NON-FORMULARY MED PO SCH ×3 (08:45→17:03)
[2017-01-30] MEDS ORDERED: PREDNISONE PO SCH (10:00)
--- NOTE | 2017-01-30 10:12 | PROGRESS NOTE ---
DATE: 01/30/2017 SUBJECTIVE: The patient is sitting up in bed eating breakfast. States that he has continued to have pain. OBJECTIVE: Vital Signs: Temperature 97.8 degrees, pulse 65, respiratory rate 20, blood pressure 104/58. Intake 1.1 L. Output not measured. He has minimal void with hemodialysis assist. General: This is a middle-aged gentleman, chronically ill-appearing, sitting up in bed. He is awake, alert, and oriented times 3-4 today. HEENT: Normocephalic and atraumatic. ANDREINA. His oral mucosa is moist. Neck: Supple. Trachea midline. No JVD. Cardiovascular : Regular rate and rhythm. Pulmonary: He has equal excursion. He has wheeze and rhonchi bilaterally. He is on room air. Abdomen: Soft, with positive bowel sounds. : Not inspected. Extremities: With 1+ pretibial edema. No clubbing, cyanosis. He is moving all extremities. States he has not ambulated. Integumentary: Skin is warm and dry. He has just placed EMLA cream to his fistula to the right upper extremity. Lab Data: No new labs today. His labs yesterday indicated platelets of 101,000 , hemoglobin 9.5, and potassium of 3.9. ASSESSMENT AND PLAN: 1. End-stage renal disease management. Today is his routine dialysis day. We will dialyze him on a 2 K bath/UF to dry weight, 4 hour treatment. 2. Electrolytes, acid-base balance, anemia. See above labs. These are stable. See #1 for plan. 3. Disposition. We understand that the patient has spoken with palliative care. He is interested in this. The patient may actually be a hospice candidate secondary to his end- stage chronic obstructive pulmonary disease and as such, he could still have dialysis as part of palliative care for that therapy. We will discuss this with the palliative care team so they can assist the patient with his outpatient goals and needs. Seen, data reviewed, discussed with Marce Huerta on 01/30/17. I agree with the above assessment and plan of care. rg Dictated by LEYDI Landaverde for Liu Sanchez MD cc: MD Trav Benson MD [facility]
[2017-01-30] MEDS: TUMS PO PRN ×3 (11:02→23:36)
[2017-01-30] MEDS ORDERED: NS 2,000 ML ONE (11:02)
[2017-01-30] MEDS ORDERED: HEPARIN ONE (11:02)
[2017-01-30] MEDS: BICITRA PO SCH ×2 (16:13→21:56)
[2017-01-30] MEDS: KLONOPIN PO SCH (21:56)
[2017-01-31] MEDS: DUONEB (A & A) INH PRN ×2 (03:20→11:15)
[2017-01-31 03:22] LABS: ALLEN TEST YES; BE 1.4 mmoll (-3.0-3.0); BLOOD TYPE ARTERIAL; DRAW SITE L BRACHIAL; METHB 1.5 % (0.0-1.5); MODALITY CANNULA; O2(CT) 11.3 mL/dL (15.0-23.0); PO2(98.6) 89 mmHg (60-100); SAMPLE BLOOD; SAO2 96.9 % (95.0-100.0); THB 8.4 g/dL (11.5-17.4); pH(98.6) 7.23 (7.35-7.45)
[2017-01-31 03:23] LABS: PCO2(98.6) 71 mmHg (35-45)
[2017-01-31] MEDS: TUMS PO PRN ×2 (04:53→12:08)
[2017-01-31 04:55] LABS: MANUAL DIFF NEEDED? NO
[2017-01-31 05:07] LABS: BASO% 0.4 % (0.0-0.8); EOS# 0.02 X1000 (0.0-0.7); EOS% 0.8 % (0.0-10.0); HEMOGLOBIN 9.2 g/dL (14.0-18.0); LYMPH# 0.58 X1000 (1.2-3.4); LYMPH% 24.6 % (20.5-51.1); MCH 32.9 PG (27-31); MCHC 31.7 g/dL (33-37); MCV 103.6 FL (81-99); MONO# 0.23 X1000 (0.11-0.59); MONO% 9.7 % (1.7-9.3); MPV 11.2 FL (7.4-10.4); NEUT% 64.5 % (42.2-75.2); PLT 82 X1000 (130-400)
[2017-01-31 05:16] LABS: ALBUMIN 2.7 g/dL (3.5-5.0); MAGNESIUM 2.2 mg/dL (1.5-2.7); POTASSIUM 4.9 mmol/L (3.5-5.1); TOTAL BILIRUBIN 0.21 mg/dL (0.20-1.00); TOTAL PROTEIN 5.2 g/dL (6.3-8.3)
[2017-01-31 05:17] LABS: CALCIUM 6.9 mg/dL (8.8-10.2)
[2017-01-31] MEDS: HUMULIN R SUBQ SCH ×2 (06:03→11:36)
--- NOTE | 2017-01-31 08:10 | PROGRESS NOTE ---
DATE: 01/31/2017 PRIMARY CARE PHYSICIAN: Dr. Trav Paul. SUBJECTIVE: Overnight, the patient responded well, requiring BiPAP less. Still acutely short of breath at baseline. Discussion was made taking DNR down to CPR only, no intubation. PHYSICAL EXAMINATION: Vital Signs: Temperature 98 degrees, pulse 70, respirations 14, blood pressure 90/48, O2 saturation 96% on 3 L nasal cannula. Physical examination primarily unchanged. Respiratory: Patient short of breath. Using accessory muscles for breathing. Tripoding with rhonchi in the bilateral bases. Abdomen: Non-tense but slightly protuberant. Extremities: No cyanosis, clubbing, or edema. The patient does demonstrate lower extremity weakness. LABS: Show a WBC of 2.36 with a hemoglobin and hematocrit of 9.2 and 29.2 respectively, platelets of 82,000. ABG shows a pH of 7.23, with a PO2 of 89, and bicarb of 26. Lactate normal. Total hemoglobin 8.4. Sodium 136, with a creatinine of 5.4, blood glucose ranging from 85-166, calcium 6.9. Ferritin 143. at 9. BNP is still greater than 35,000. Albumin low at 5.2. ASSESSMENT: Patient is a 56-year-old, unfortunate male with: 1. Severe chronic obstructive pulmonary disease, hypoxic and hypercarbic respiratory failure, chronic. 2. End-stage renal dialysis on Monday, Monday, Monday hemodialysis. 3. Chronic pain syndrome, on long-term opioid medication. 4. Continued tobacco use, greater than 1 pack a day. 5. Metabolic acidosis secondary to end-stage renal disease. 6. Diabetes mellitus type 2. 7. Electrolyte imbalance secondary to end-stage renal disease. PLAN: The patient is currently in the CICU and we are evaluating the possibility of having hospice care with palliative dialysis. Patient's balance between pain control with opioid narcotics and decreased respiratory drive is incompatible with long-term quality of life and the patient would require indefinite hospitalization. Discussion is being had with both the family and patient regarding these changes and I will contact [facility] to see if there are any additional recommendations that can be made regarding the patient continuing forward on hospice with discharge to home as soon as possible and follow up with the dialysis for palliation only. We will continue current medication regimen and follow up p.r.n. cc: Trav Paul MD
[2017-01-31] MEDS ORDERED: XYLOCAINE-MPF 1% INJ SCH (09:00)
--- NOTE | 2017-01-31 09:24 | PROGRESS NOTE ---
DATE: 01/31/2017 SUBJECTIVE: Patient is sitting up in bed. He underwent dialysis yesterday without issues. OBJECTIVE: Vital Signs: Temperature 98.1 degrees, pulse 70, respiratory rate 14, blood pressure 98/48. Intake 360 mL. Output 1.6 L. General: This is a middle-aged gentleman resting in bed. He is awake and alert, no acute distress. HEENT: Normocephalic, atraumatic. ANDREINA. Oral mucosa moist. Tongue is midline. Neck: Supple. Trachea midline without JVD. Cardiovascular: Regular rate and rhythm. There is no murmur or gallop. Pulmonary: He has equal excursion with wheeze and rhonchi bilaterally. He remains on room air. Abdomen: Soft with positive bowel sounds. : Not inspected. Extremities: Trace pretibial edema. No clubbing , cyanosis. Moving all extremities. Integumentary: Skin is warm and dry. LAB DATA: WBC of 2.3, hemoglobin 9.2. Sodium 136, potassium 4.9, CO2 25. BUN 40, creatinine 5.4, calcium 6.9, albumin 2.7. ASSESSMENT AND PLAN: 1. End-stage renal disease management. He underwent routine dialysis yesterday. We will continue him on a Monday, Monday, and Monday schedule while he is in the hospital. 2. Electrolytes, acid-base balance, anemia. Aside from some hypocalcemia, these are in target. If he remains in the hospital tomorrow, we will address this during dialysis. The patient does not have intravenous access currently. This is being treated by mouth by primary. 3. Disposition: He is currently working with primary and palliative care. There is some discussion about sending him home on hospice. We would be able to continue outpatient dialysis depending on his hospice admitting diagnosis. We will work closely with the team to meet his needs. Seen, data reviewed, discussed with Marce Huerta on 01/21/17. I agree with the above assessment and plan of care. rg Dictated by LEYDI Landaverde for Liu Sanchez MD cc: MD Trav Benson MD [facility]
[2017-01-31] MEDS: BICITRA PO SCH (10:10)
[2017-01-31] MEDS: LIDODERM TOP SCH (10:11)
[2017-01-31] MEDS: NICODERM PATCH TD SCH (10:12)
[2017-01-31] MEDS: NON-FORMULARY MED PO SCH ×2 (10:12→12:45)
[2017-01-31] MEDS: TUMS PO SCH ×2 (10:12→12:45)
[2017-01-31] MEDS: ROCEPHIN IM SCH (10:13)
[2017-01-31] MEDS: OXYCONTIN PO PRN (10:16)
[2017-01-31 10:57] VITALS: BP 109/52
--- NOTE | 2017-02-15 11:29 | DISCHARGE SUMMARY ---
ADMISSION DATE: 01/25/2017 DISCHARGE DATE: 01/31/2017 PRIMARY CARE PHYSICIAN: Dr. Trav Paul. CONSULTATIONS: We had nephrology doctor Dr. Liu Sanchez. Pulmonary Dr. Faraz Fink. HISTORY OF PRESENT ILLNESS: In brief, the patient is a 56-year-old, unfortunate male with end- stage renal disease noted to be in acute respiratory failure. The patient was admitted direct admit to the ICU and found to have acute hypotension incompatible with a sustained end of life without pressors along with respiratory failure. These conditions are concomitant to patient's end-stage renal disease requiring hemodialysis 3 times per week. HOSPITAL COURSE: Patient was admitted to the ICU and treated with IV fluid resuscitation to max along with a full respiratory support with BiPAP. Patient declined intubation secondary to advanced directive. Upon evaluation by Pulmonary, was noted to be in an end-stage state in both his respiratory and renal function. The patient utilized dopamine and had pressor with minimal effect. He was weaned off of that medication and lost an IV line. After that, the need for PICC and central line was declined. The patient was then stepped down to the CICU and after discussion with himself and family was admitted to hospice under the diagnosis of end-stage respiratory failure. The patient has been followed as an outpatient in my office and along with [facility] as a hospice patient. MEDICATIONS: Please refer to medication reconciliation order form for most up-to-date medication list. DISPOSITION: The patient is discharged to hospice with prognosis for length of life greater than 6 months minimal. PROBLEM LIST ON DISCHARGE: 1. Severe chronic obstructive pulmonary disease with hypercapnia. 2. End-stage renal disease on hemodialysis. 3. Recurrent pancreatitis. 4. Tobacco use medical noncompliance. 5. Severe electrolyte abnormality. 6. Skin breakdown sacral decubitus. LABS AND IMAGING: Will be available upon request via the [facility] records in the chart. cc: Trav Paul MD
== END 2017-01-31 15:12 | disposition hospice, home (50) ==
LOC: ED 13:16 → ICU 15:57 → 3S 01-30 17:37
PROVIDERS: ADMIT Family Medicine; ATTEND Family Medicine